=== PATIENT | female | born 1965 | race Caucasian/White ===

== ENCOUNTER 2023-11-10 13:08 | Emergency (ER) | payer MEDICAID, SELFPAY ==
[2023-11-10 13:09] VITALS: BP 129/80; PULSE 84; RESP 19; TEMP 36.9; O2SAT 90; BMI 37.1
--- NOTE | 2023-11-10 13:13 | ECG_ITS ---
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 Measurements Intervals [place] Rate: 87 P: 65 [place]: 170 QRS: -74 QRSD: 68 T: 47 QT: 331 QTc: 399 Interpretive Statements SINUS RHYTHM LEFT AXIS DEVIATION [QRS AXIS < -30] LOW QRS VOLTAGE IN PRECORDIAL LEADS [QRS DEFLECTION < 1.0 mV IN CHEST LEADS] POSSIBLE RIGHT VENTRICULAR CONDUCTION DELAY [RSR (QR) IN V1/V2] POSSIBLE ANTERIOR MYOCARDIAL INFARCTION , PROBABLY OLD [30 ms Q WAVE IN V3/V4, OR R < 0.2 mV IN V4] No previous ECG available for comparison Electronically Signed On 11-10-2023 17:33:53 CDT by Preet Welch M.D. [id number]
--- NOTE | 2023-11-10 14:04 | ED_ITS ---
HPI - Arrhythmia/Palpitations 2 General: Chief Complaint: Arrhythmia/Palpitations Stated Complaint: svt Time Seen by Provider: 11/10/23 13:09 History of Present Illness: 58-year-old female who presents emergenc y room with episode of SVT. She was brought in by ambulance after having rapid heart rate at home EMS gave her Identicard which converted her back to normal sinus rhythm on arrival here she is asymptomatic. She has not had any arrhythmia or other further episodes last time she had a breakthrough episode was almost a year ago she does take diltiazem 240 mg once daily for this. Review of Systems 2 Const: Denies: fever(s) or chills Card: Reports: palpitations; Denies: chest pain, edema, swelling of feet/ankles, dyspnea on exertion or orthopnea Resp: Denies: dyspnea GI: Denies: abdominal pain : Denies: dysuria, urinary frequency or urinary urgency Musc: Denies: neck pain or back pain Skin/Breast: Denies: rash PFSH ED 2 PFSH: Medical History (Updated 11/10/23 @ 15:40 by Tye Restrepo DO) SVT (supraventricular tachycardia) Physical Exam 2 Const: GENERAL APPEARANCE: cooperative and comfortable O RIENTATION/CONSCIOUSNESS: Yes awake, Yes oriented to person, Yes oriented to place and Yes oriented to time HENMT: COMMON NORMALS: normocephalic, atraumatic and hearing grossly normal bilaterally HEAD & SCALP: normocephalic and atraumatic Resp: COMMON NORMALS: normal respiratory effort, No retractions, No use of accessory muscles and clear to auscultation bilaterally AUSCULTATION: clear to auscultation bilaterally Cardio: COMMON NORMALS: regular rate, regular rhythm and No murmurs present (Cardio) RATE: regular rate RHYTHM: regular rhythm GI: COMMON NORMALS: Soft to palpation and No hepatosplenomegaly present A USCULTATION: Yes normoactive bowel sounds PALPATION: Yes Soft to palpation, No Tenderness to palpation present (GI), No Guarding due to palpation present (GI) and Yes No hepatosplenomegaly present Extremity: COMMON NORMALS: normal to inspection, capillary refill normal, no clubbing, cyanosis or edema, no calf tenderness and no pedal edema Neuro: SENSORIUM/ORIENTATION: Yes oriented to person, Yes oriented to place and Yes oriented to time Skin: COMMON NORMALS: no rashes or lesions noted GENERAL SKIN EXAM: no rashes or lesions noted Course 2 Vital Signs: Vital signs: Vital Signs Temperature 98.5 F 11/10/23 13:09 Pulse Rate 64 11/10/23 15:46 Respiratory Rate 19 H 11/10/23 13:09 Blood Pressure 121/74 11/10/23 15:46 Pulse Oximetry 92 11/10/23 15:46 Oxygen Delivery Me thod Room Air 11/10/23 15:40 MDM - Arrhythmia/Palpitations Medical Decision Making No further palpitations or rapid heart rates heart rate is normalized now. She states she had a few episodes in the past few weeks where it briefly will be rapid. Will set up for 72-hour Holter monitor follow-up with primary care doctor no change in medications for now continue take her previously prescribed medicines. Medical Records I reviewed the patient's medical records. Lab Data I reviewed the patient's lab results. 11/10/23 14:00 11/10/23 14:00 Radiology Impressions Chest X-Ray 11/10/23 14:19 Impression: Atherosclerosis. Laboratory Results WBC 10.25 10^3/uL (3.29-11.43) 11/10/23 14:00 RBC 6.20 10^6/uL (3.85-5.65) H 11/10/23 14:00 Hgb 16.40 g/dL (11.27-16.99) 11/10/23 14:00 Hct 52.5 % (36-47) H 11/10/23 14:00 MCV 84.7 fl (85-98) L 11/10/23 14:00 MCH 26.5 pg (27-33) L 11/10/23 14:00 MCHC 31.2 g/dL (30-55) 11/10/23 14:00 RDW 16.0 % (12.1-15.1) H 11/10/23 14:00 Plt Count 332 10^3/cmm (157-399) 11/10/23 14:00 MPV 9.8 fL (7.4-10.4) 11/10/23 14:00 Neut % (Auto) 72.4 % 11/10/23 14:00 Lymph % (Auto) 19.0 % 11/10/23 14:00 [place] % (Auto) 6.0 % 11/10/23 14:00 Eos % (Auto) 1.4 % 11/10/23 14:00 Baso % (Auto) 0.5 % 11/10/23 14:00 Neut # (Auto) 7.43 10^3/uL (1.8-7.7) 11/10/23 14:00 Lymph # (Auto) 2.0 10^3/uL (0.8-4.8) 11/10/23 14:00 [place] # (Auto) 0.6 10^3/uL (0.2-0.9) 11/10/23 14:00 Eos # (Auto) 0.1 10^3/uL (0.0-0.8) 11/10/23 14:00 Baso # (Auto) 0.1 10^3/uL (0.0-0.1) 11/10/23 14:00 Nucleated RBC % (auto) 0 % 11/10/23 14:00 Nucleated RBCs # 0.0 /100WBC 11/10/23 14:00 Sodium 144 mmol/L (136-145) 11/10/23 14:00 Potassium 4.1 mmol/L (3.5-5.1) 11/10/23 14:00 Chloride 107 mmol/L (98-107) 11/10/23 14:00 Carbon Dioxide 23 mmol/L (22-29) 11/10/23 14:00 Anion Gap 18.1 (5-19) 11/10/23 14:00 BUN 18 mg/dL (6-20) 11/10/23 14:00 Creatinine 0.6 mg/dL (0.5-0.9) 11/10/23 14:00 GFR Calculation 103.4 mL/min (90-130) 11/10/23 14:00 Glucose 115 mg/dL (65-115) 11/10/23 14:00 Calculated Osmolality 301 mOsm/kg (285-295) H 11/10/23 14:00 Calcium 10.3 mg/dL (8.5-10.5) 11/10/23 14:00 Total Bilirubin 0.3 mg/dL (0.15-1.2) 11/10/23 14:00 AST 19 U/L (0-32) 11/10/23 14:00 ALT 29 U/L (0-33) 11/10/23 14:00 Alkaline Phosphatase 108 U/L (35-105) H 11/10/23 14:00 Total Protein 7.6 g/dL (6.6-8.7) 11/10/23 14:00 Albumin 4.1 g/dL (3.5-5.2) 11/10/23 14:00 Globulin 3.5 g/dL (1.3-4.6) 11/10/23 14:00 All radiology interpretation(s) finalized by discharge Discharge Plan Discharge Patient Disposition: Home Clinical Impression: SVT (supraventricular tachycardia) Condition: Stable Prescriptions: No Action diltiazem HCl 240 mg capsule,extended release 24 hr 240 mg PO DAILY Discharge Orders: Discharge ED (Routine); Ordered 11/10/23 Ordered By: Tye Restrepo Discharge Diet: Usual diet Discharge Activity: Increase activity as tolerated Patient Instructions: Opioid Safety, Pain Management Activity Restrictions/Additional Instructions: Thank you for choosing [facility] for your healthcare needs today. It is very important that you follow up as instructed or that you return to the Emergency Department should you have concerns or if your condition changes or worsens in any way. You were seen today for an episode of supraventricular tachycardia (SVT). Since his responded quite quickly to the medications given by EMS and there were no further abnormalities on the monitoring in the emergency room and laboratory tests were unremarkable recommend that you continue your current medication. Avoid caffeine avoid heat is much as possible make sure you drink plenty of fluids. manager application development will make arrangements for you to have a 72-hour Holter monitor follow-up with the results with your primary care doctor or your barn and property manager. Coding Level of Care Code ED Asset Protection Agent for Kirk Foster
[2023-11-10 14:06] LABS: Basophils # 0.1 10^3/uL (0.0-0.1); Basophils % 0.5 %; Eosinophils # 0.1 10^3/uL (0.0-0.8); Eosinophils % 1.4 %; Hematocrit 52.5 % (36-47); Mean Corpuscular HGB Conc 31.2 g/dL (30-55); Mean Corpuscular Hemoglobin 26.5 pg (27-33); Mean Corpuscular Volume 84.7 fl (85-98); Mean Platelet Volume 9.8 fL (7.4-10.4); Monocytes # 0.6 10^3/uL (0.2-0.9); Neutrophils # 7.43 10^3/uL (1.8-7.7); Neutrophils % 72.4 %; Nucleated Red Blood Cells % 0 %; Platelet Count 332 10^3/cmm (157-399); White Blood Count 10.25 10^3/uL (3.29-11.43)
--- NOTE | 2023-11-10 14:19 | XR_ITS ---
WS: [id number] Portable AP upright chest, 11/10/2023 Clinical Data: dyspnea/cough Comparison: None. Findings: No nodules, masses or effusions are seen. The heart is normal. The pulmonary vascularity is not increased. No pneumonia or pneumothorax is seen. The aortic arch and descending thoracic aorta s how mild tortuosity. XR/XR chest 1V portable [id number] Impression: Atherosclerosis.
[2023-11-10 14:24] LABS: Alanine Aminotransferase 29 U/L (0-33); Albumin Level 4.1 g/dL (3.5-5.2); Alkaline Phosphatase 108 U/L (35-105); Anion Gap 18.1 (5-19); Aspartate Amino Transferase 19 U/L (0-32); Blood Urea Nitrogen 18 mg/dL (6-20); Calcium 10.3 mg/dL (8.5-10.5); Carbon Dioxide 23 mmol/L (22-29); Chloride 107 mmol/L (98-107); Globulin 3.5 g/dL (1.3-4.6); Glomerular Filtration Rate 103.4 mL/min (90-130); Glucose 115 mg/dL (65-115); Osmolality Calculated 301 mOsm/kg (285-295); Potassium 4.1 mmol/L (3.5-5.1); Sodium 144 mmol/L (136-145); Total Bilirubin 0.3 mg/dL (0.15-1.2); Total Protein 7.6 g/dL (6.6-8.7)
--- NOTE | 2023-11-10 14:40 | ECG_ITS ---
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 Measurements Intervals [place] Rate: 87 P: 65 [place]: 170 QRS: -74 QRSD: 68 T: 47 QT: 331 QTc: 399 Interpretive Statements SINUS RHYTHM LEFT AXIS DEVIATION [QRS AXIS < -30] LOW QRS VOLTAGE IN PRECORDIAL LEADS [QRS DEFLECTION < 1.0 mV IN CHEST LEADS] POSSIBLE RIGHT VENTRICULAR CONDUCTION DELAY [RSR (QR) IN V1/V2] POSSIBLE ANTERIOR MYOCARDIAL INFARCTION , PROBABLY OLD [30 ms Q WAVE IN V3/V4, OR R < 0.2 mV IN V4] No previous ECG available for comparison Electronically Signed On 11-11-2023 7:00:06 CDT by Preet Welch M.D. [id number]
[2023-11-10 14:44] VITALS: BP 132/90; PULSE 65; O2SAT 91
[2023-11-10 15:40] VITALS: BP 121/74; PULSE 60; O2SAT 92
[2023-11-10 15:46] VITALS: BP 121/74; PULSE 64; O2SAT 92
--- NOTE | 2023-11-10 18:30 | DCPLANNER ---
messaged heart care for er f/u
== END 2023-11-10 15:48 | disposition home or self-care (01) ==
PROVIDERS: Emergency Provider Family Medicine
DX: I47.10 Supraventricular tachycardia, unspecified (principal)
CPT/HCPCS: 36415; 71045; 80053; 85025; 93005; 99285